=== PATIENT | male | born 1970 | race Two or more races ===

== ENCOUNTER → 2025-02-08 | Outpatient (CLI) | payer MEDICAID, SELFPAY ==
--- NOTE | 2025-02-08 09:09 | XR_ITS ---
Examination: Esophagram standard Fluoroscopy Upright PA chest single view Upright soft tissue lateral neck single view 27 spot fluoroscopic films of the esophagus Exam date and time: February 08, 2025 0935 hours INDICATIONS: Difficulty swallowing and epigastric pain beginning 2 years ago. TECHNIQUE AND FINDINGS: Upright PA chest single view demonstrates normal heart size cardiac leads satisfactory position no active disease Soft tissue lateral neck demonstrates advanced degenerative disc disease C6-C7 normal epiglottis Patient swallowed thin barium with 27 spot fluoroscopic films of the esophagus fluoroscopy 0.13 minutes Numerous secondary and tertiary esophageal contractions isolated primary peristaltic waves Moderate sliding esophageal hernia No stricture the gastroesophageal junction No constricting esophageal lesion IMPRESSION: Significant esophageal dysmotility, numerous secondary and tertiary esophageal contractions No reflux or stricture at the gastroesophageal junction
== END | disposition home or self-care (01) ==
LOC: CDIM 08:57
PROVIDERS: PCP Registered Nurse; Referring Provider Registered Nurse; Visit Provider Registered Nurse
DX: K22.89 Other specified disease of esophagus (principal)
CPT/HCPCS: 74220; A4699